=== PATIENT | male | born 1995 | race Caucasian/White ===

== ENCOUNTER 2016-04-06 12:47 | Emergency (ER) | payer OTHER ==
[2016-04-06] MEDS ORDERED: PROPARACAINE 0.5% OPHTH DROPS 15 ML BTL BOTH EYES STA (13:08)
--- NOTE | 2016-04-06 13:39 | ED ---
General Adult HPI - General Chief complaint: Eye Problems Stated complaint: FB Eye Time Seen by Provider: 04/06/16 13:07 Source: patient, RN notes reviewed Mode of arrival: ambulatory Limitations: no limitations - History of Present Illness Initial comments: Patient 20-year-old male who presents emergency room today with chief complaint of foreign body located to the left eye 2 days. He does admit that 2 days ago he did have 6 glasses on when he was grinding. States a piece of metal fell in behind got into his eye. He states he try to get it out at home with little luck. Patient states he believes his tetanus is up-to-date. Patient denies any other complaints or symptoms at this time. Patient denies any recent fever, chills, shortness of breath, chest pain, back pain, abdominal pain, nausea or vomiting, numbness or tingling, dysuria or hematuria, constipation or diarrhea, headaches, or any other complaints. - Related Data Previous Rx's Medication Instructions Recorded Acetaminophen-Codeine 300-30mg 1 each PO Q4H PRN #15 tablet 03/04/15 [Tylenol #3] Ibuprofen [Motrin] 600 mg PO Q6HR PRN #15 day 04/06/16 Tobramycin 0.3% Ophth Soln [Tobrex 1 - 2 drop LEFT EYE QID 7 Days 04/06/16 0.3% Ophth Soln] Allergies Allergy/AdvReac Type Severity Reaction Status Date / Time amoxicillin [Amoxicillin] Allergy Swelling Verified 04/06/16 12:52 Review of Systems ROS Statement: Those systems with pertinent positive or pertinent negative responses have been documented in the HPI. ROS Other: All systems not noted in ROS Statement are negative. Past Medical History Past Medical History: No Reported History History of Any Multi-Drug Resistant Organisms: None Reported Past Surgical History: No Surgical Hx Reported Past Psychological History: No Psychological Hx Reported Smoking Status: Current every day smoker Past Alcohol Use History: None Reported Past Drug Use History: None Reported General Exam - General Exam Comments Initial Comments: General: The patient is awake and alert, in no distress, and does not appear acutely ill. Eye: Pupils are equal, round and reactive to light, extra-ocular movements are intact. No nystagmus. Increased redness erythema to the left conjunctiva with watery discharge. No signs of icterus. Ears, nose, mouth and throat: There are moist mucous membranes and no oral lesions. Neck: The neck is supple. Cardiovascular: There is a regular rate and rhythm. No murmur, rub or gallop is appreciated. Respiratory: Lungs are clear to auscultation, respirations are non-labored, breath sounds are equal. No wheezes, stridor, rales, or rhonchi. Musculoskeletal: Normal ROM, no tenderness. Strength 5/5. Sensation intact. Pulses equal bilaterally 2+. Neurological: A&O x 3. CN II-XII intact, There are no obvious motor or sensory deficits. Coordination appears grossly intact. Speech is normal. Skin: Skin is warm and dry and no rashes or lesions are noted. Psychiatric: Cooperative, appropriate mood & affect, normal judgment. Limitations: no limitations Course Vital Signs 04/06/16 12:49 Temperature 98.0 F Pulse Rate 81 Respiratory 20 Rate Blood Pressure 115/69 O2 Sat by Pulse 98 Oximetry Procedures - Procedures Initial comment: Patient's left eye was anesthetized locally with proparacaine drops which did relieve his symptoms. Patient's eye was stained with forcing checked underneath Ricks lamp revealing a foreign body at the 10 o'clock position. Lids inverted no other foreign bodies. Patient's eye was then checked with slit lamp exam revealing no other foreign bodies. Craig brush was used to remove foreign body at the 10 o'clock position. Patient's eye rechecked once again underneath slit lamp. No other foreign bodies appreciated. Patient tolerated procedure well. Medical Decision Making - Medical Decision Making Patient refusing tetanus here today. Important was discussed with the patient. Patient will be started on antibiotics yesterday is advised to follow-up with chief mechanical officer over the next 2 days of symptoms have not completely resolved. Advised to use [id number] artificial tears as needed for comfort. Advised used Tylenol Motrin for pain. Advised return to emergency room for any other concerns. Disposition Clinical Impression: Corneal foreign body Disposition: HOME SELF-CARE Condition: Good Instructions: Corneal Abrasion (ED) Additional Instructions: Please follow up with the chief mechanical officer over the next 2 days of symptoms have not completely resolved. Please use [id number] artificial tears without preservatives as needed for comfort. Please use Tylenol/ibuprofen for pain as needed. Please return to emergency room for any other concerns. Prescriptions: Ibuprofen [Motrin] 600 mg PO Q6HR PRN #15 day PRN Reason: Pain Tobramycin 0.3% Ophth Soln [Tobrex 0.3% Ophth Soln] 1 - 2 drop LEFT EYE QID 7 Days Referrals: Nathan Mayorga MD [Primary Care Provider] - 1-2 days Johnathan Melchor MD [STAFF PHYSICIAN] - 1-2 days Time of Disposition: 13:38
[2016-04-06 13:56] VITALS: BP 115/70; PULSE 78; RESP 16; TEMP 97.6
== END 2016-04-06 13:55 | disposition home or self-care (01) ==
LOC: EC 12:47
DX: T15.02XA Foreign body in cornea, left eye, initial encounter (principal); W20.8XXA Other cause of strike by thrown, projected or falling object, initial encounter; Z88.0 Allergy status to penicillin; F17.200 Nicotine dependence, unspecified, uncomplicated
CPT/HCPCS: 65222; 99283

== ENCOUNTER 2017-12-14 12:33 | Emergency (ER) | payer OTHER ==
[2017-12-14 12:40] VITALS: BP 136/83; PULSE 87; RESP 18; TEMP 97.7
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
--- NOTE | 2017-12-14 13:23 | XR ---
EXAMINATION TYPE: XR wrist complete RT , 5 VIEWS DATE OF EXAM ORDERED: 12/14/2017 HISTORY: Pain. COMPARISON: None. FINDINGS: No fracture, dislocation or other acute osseous lesion is identified. IMPRESSION: NORMAL RIGHT WRIST.
--- NOTE | 2017-12-14 13:24 | XR ---
EXAMINATION TYPE: XR hand complete RT , 3 VIEWS DATE OF EXAM ORDERED: 12/14/2017 HISTORY: Pain. COMPARISON: None. FINDINGS: No fracture, dislocation or other acute osseous lesion is seen. IMPRESSION: NO ACUTE OSSEOUS LESION.
== END 2017-12-14 14:04 | disposition home or self-care (01) ==
LOC: EC 12:33
DX: S60.511A Abrasion of right hand, initial encounter (principal); F17.200 Nicotine dependence, unspecified, uncomplicated; Z88.0 Allergy status to penicillin; W22.8XXA Striking against or struck by other objects, initial encounter; Y93.89 Activity, other specified; Y92.59 Other trade areas as the place of occurrence of the external cause
CPT/HCPCS: 29125; 99283

== ENCOUNTER 2018-10-05 00:23 | Emergency (ER) | payer OTHER ==
[2018-10-05 00:30] VITALS: BP 130/75; PULSE 96; RESP 18; TEMP 97.9
[2018-10-05] MEDS ORDERED: LIDOCAINE 1% INJ 10MG/ML (20 ML MDV) SQ ONE (00:31)
[2018-10-05] MEDS ORDERED: IBUPROFEN 600 MG TAB PO STA (00:43)
--- NOTE | 2018-10-05 01:23 | XR ---
EXAM: XR Right Hand Complete, 3 or More Views CLINICAL HISTORY: Pain TECHNIQUE: Frontal, lateral and oblique views of the right hand. COMPARISON: X-ray dated 12/14/2017 FINDINGS: Bones/joints: Unremarkable. No acute fracture. No dislocation. Soft tissues: Unremarkable. No radiopaque foreign body. IMPRESSION: Normal right hand x-rays.
--- NOTE | 2018-10-05 01:30 | ED ---
Wound/Laceration HPI - General Chief Complaint: Wound/Laceration Stated Complaint: index finger rt hand Time Seen by Provider: 10/05/18 00:30 Source: patient Mode of arrival: ambulatory Limitations: no limitations - History of Present Illness Initial Comments: 22-year-old male patient presents to the emergency department today for evaluation of laceration to the right hand. Patient states just prior to arrival he was doing the dishes. States he turned with a cup in his hand, slipped in some water and fell landing on the cup. Patient denies hitting his head or losing consciousness during the fall. States his been having difficulty getting the wound to stop bleeding. Denies any use of anticoagulant or antiplatelet medications. States his tetanus vaccine is up-to-date within the last 5 years. Does admit to drinking alcohol this evening. Patient denies any headache, neck pain, back pain, chest pain, shortness of breath, dizziness, weakness, abdominal pain, nausea, vomiting, or difficulties with bowel movements or urination. - Related Data Previous Rx's Medication Instructions Recorded Acetaminophen-Codeine 300-30mg 1 each PO Q4H PRN #15 tablet 03/04/15 [Tylenol #3] Ibuprofen [Motrin] 600 mg PO Q6HR PRN #15 day 04/06/16 Tobramycin 0.3% Ophth Soln [Tobrex 1 - 2 drop LEFT EYE QID 7 Days ml 04/06/16 0.3% Ophth Soln] Cephalexin [Keflex] 500 mg PO Q6HR 5 Days cap 12/14/17 Allergies Allergy/AdvReac Type Severity Reaction Status Date / Time amoxicillin [Amoxicillin] Allergy Swelling Verified 10/05/18 00:29 Review of Systems ROS Statement: Those systems with pertinent positive or pertinent negative responses have been documented in the HPI. ROS Other: All systems not noted in ROS Statement are negative. Past Medical History Past Medical History: No Reported History History of Any Multi-Drug Resistant Organisms: None Reported Past Surgical History: No Surgical Hx Reported Past Psychological History: No Psychological Hx Reported Smoking Status: Current some day smoker Past Alcohol Use History: Occasional Past Drug Use History: Marijuana General Exam Limitations: no limitations General appearance: alert, in no apparent distress, other (Physical well- developed, well-nourished adult male patient in no acute distress. Vital signs upon presentation are temperature 97.9F, pulse 96, respirations 18, blood pressure 130/75, pulse ox 99% on room air.) Head exam: Present: atraumatic, normocephalic, normal inspection Eye exam: Present: normal appearance, PERRL, EOMI. Absent: scleral icterus, conjunctival injection, periorbital swelling ENT exam: Present: normal exam, normal oropharynx, mucous membranes moist Neck exam: Present: normal inspection, full ROM, other (Nontender, no step-off, no deformity to firm midline palpation of the posterior cervical spine. Full range of motion without pain or limitation.). Absent: tenderness, meningismus, lymphadenopathy Respiratory exam: Present: normal lung sounds bilaterally. Absent: respiratory distress, wheezes, rales, rhonchi, stridor Cardiovascular Exam: Present: regular rate, normal rhythm, normal heart sounds. Absent: systolic murmur, diastolic murmur, rubs, gallop, clicks GI/Abdominal exam: Present: soft, normal bowel sounds. Absent: distended, tenderness, guarding, rebound, rigid Extremities exam: Present: full ROM, normal capillary refill, other (4 cm laceration noted to the right index finger over the base of the proximal phalanx, palmar surface. Wound explored, no evidence of tendon injury. Mild active bleeding noted. Patient has full range of motion of the finger. Skin is otherwise pink, warm, dry. Cap refills less than 3 seconds. Radial pulses 2+ and equal bilaterally.). Absent: normal inspection, tenderness, pedal edema, joint swelling, calf tenderness Back exam: Present: normal inspection, other (Nontender, no step-off, no deformity to firm midline palpation of the thoracic and lumbar vertebrae. Full range of motion without pain or limitation.). Absent: vertebral tenderness Neurological exam: Present: alert, oriented X3, CN II-XII intact Psychiatric exam: Present: normal affect, normal mood Skin exam: Present: warm, dry, intact, normal color. Absent: rash Course Vital Signs 10/05/18 00:26 Temperature 97.9 F Pulse Rate 96 Respiratory 18 Rate Blood Pressure 130/75 O2 Sat by Pulse 99 Oximetry Procedures - Laceration Laceration #1 Consent Obtained: verbal consent Indication: laceration Site: hand (Right index finger) Size (cm): 4 Description: linear Depth: simple, single layer Anesthetic Used: lidocaine 1% Anesthesia Technique: local infiltration Amount (mls): 6 Pre-repair: wound explored, irrigated extensively Type of Sutures: nylon Size of Sutures: 5-0 Number of Sutures: 8 Technique: simple, interrupted Patient Tolerated Procedure: well, no complications Medical Decision Making - Medical Decision Making 22-year-old male patient presented to emergency department today for evaluation of laceration to right hand. Physical examination revealed a 4 cm laceration over the palmar surface of the right index finger, at the base of the proximal phalanx. Laceration was repaired as documented. X-ray showed no evidence of bony abnormality or foreign body. Wound was irrigated extensively using sterile water. Dressing applied. He'll be discharged to follow-up with hand surgeon Dr. Ochoa for further evaluation. He is educated regarding wound care, suture removal, and signs or symptoms of infection. He is instructed to follow- up with his primary care physician for recheck in 1-2 days. Return parameters were discussed in detail. He verbalizes understanding and agrees with this plan. - Radiology Data Radiology results: report reviewed, image reviewed 3 views of the right hand are obtained. Report was reviewed in its entirety. Impression by Dr. Christopher shows normal right hand x-rays. Disposition Clinical Impression: Laceration of right index finger Disposition: HOME SELF-CARE Condition: Good Instructions (If sedation given, give patient instructions): Care For Your Stitches (ED), Laceration (ED) Additional Instructions: Leave initial dressing in place for the first 24 hours. Cleanse twice daily with warm water and antibacterial soap. Take Tylenol and Motrin for pain control. Follow-up with the hand surgeon for further evaluation as soon as possible. Monitor for signs or symptoms of infection including but not limited to redness, swelling, drainage of pus, fever, or chills. Return in 7 days to have the stitches removed. Return to the emergency department immediately for any new, worsening, or concerning symptoms. Is patient prescribed a controlled substance at d/c from ED?: No Referrals: Nathan Mayorga MD [Primary Care Provider] - 1-2 days Magdi Ochoa DO [Medical Doctor] - 1-2 days Time of Disposition: 01:30
== END 2018-10-05 01:36 | disposition home or self-care (01) ==
LOC: EC 00:23
DX: S61.210A Laceration without foreign body of right index finger without damage to nail, initial encounter (principal); F17.200 Nicotine dependence, unspecified, uncomplicated; Z88.0 Allergy status to penicillin; W45.8XXA Other foreign body or object entering through skin, initial encounter; Y93.89 Activity, other specified
CPT/HCPCS: 12002; 99283

== ENCOUNTER 2020-06-09 11:33 | Emergency (ER) | payer OTHER ==
[2020-06-09 11:49] VITALS: TEMP 97.4
--- NOTE | 2020-06-09 13:01 | ED ---
Psych HPI - General Chief Complaint: Psychiatric Symptoms Stated Complaint: Mental Health Time Seen by Provider: 06/09/20 11:52 Source: patient, RN notes reviewed Mode of arrival: ambulatory Limitations: no limitations - History of Present Illness Initial Comments: 24-year-old male presents emergency Department with chief complaint of needing psychiatric help. Patient states she has some anger issues, anxiety history of bipolar disorder. Patient states used to be on medications cannot remember what they were. Patient states that he is currently on probation. 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 Patient states he was incarcerated became sober. - Related Data Home Medications Medication Instructions Recorded Confirmed No Known Home Medications 06/09/20 06/09/20 Allergies Allergy/AdvReac Type Severity Reaction Status Date / Time amoxicillin [Amoxicillin] Allergy Unknown Verified 06/09/20 12:26 Review of Systems ROS Statement: Those systems with pertinent positive or pertinent negative responses have been documented in the HPI. ROS Other: All systems not noted in ROS Statement are negative. Past Medical History Past Medical History: No Reported History History of Any Multi-Drug Resistant Organisms: None Reported Past Surgical History: No Surgical Hx Reported Past Psychological History: No Psychological Hx Reported Smoking Status: Current every day smoker Past Alcohol Use History: Occasional Past Drug Use History: Heroin, Marijuana, Methamphetamine General Exam Limitations: no limitations General appearance: alert, in no apparent distress, anxious Head exam: Present: atraumatic, normocephalic, normal inspection Eye exam: Present: normal appearance, PERRL, EOMI. Absent: scleral icterus, conjunctival injection, periorbital swelling ENT exam: Present: normal exam, normal oropharynx, mucous membranes moist Neck exam: Present: normal inspection, full ROM. Absent: tenderness, meningismus, lymphadenopathy Respiratory exam: Present: normal lung sounds bilaterally. Absent: respiratory distress, wheezes, rales, rhonchi, stridor Cardiovascular Exam: Present: regular rate, normal rhythm, normal heart sounds. Absent: systolic murmur, diastolic murmur, rubs, gallop, clicks Neurological exam: Present: alert, oriented X3, CN II-XII intact Psychiatric exam: Present: anxious Skin exam: Present: warm, dry, intact, normal color. Absent: rash Course Vital Signs 06/09/20 11:45 Temperature 97.4 F L Pulse Rate 58 L Respiratory 16 Rate Blood Pressure 131/84 O2 Sat by Pulse 100 Oximetry Medical Decision Making - Medical Decision Making 24-year-old male presented for psychiatric evaluation. Patient is not suicidal or homicidal patient evaluated by EPS psychiatrist recommends outpatient treatment for medications. Return parameters were discussed. Disposition Clinical Impression: Acute anxiety Disposition: HOME SELF-CARE Condition: Stable Instructions (If sedation given, give patient instructions): Generalized Anxiety Disorder (ED) Additional Instructions: Please return to the Emergency Department if symptoms worsen or any other concerns. Is patient prescribed a controlled substance at d/c from ED?: No Referrals: Nathan Mayorga MD [Primary Care Provider] - 1-2 days Time of Disposition: 14:11
[2020-06-09 14:26] VITALS: BP 124/85; PULSE 88; RESP 18
== END 2020-06-09 14:27 | disposition home or self-care (01) ==
LOC: EC 11:33
DX: F41.9 Anxiety disorder, unspecified (principal); F17.210 Nicotine dependence, cigarettes, uncomplicated
CPT/HCPCS: 82075; 99282

== ENCOUNTER 2021-11-07 17:41 | Inpatient (IN) | payer MEDICAID, OTHER ==
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
[2021-11-07 20:19] LABS: Amphetamine Screen,Urine Detected (NotDetected); Barbiturate Screen,Urine Not Detected (NotDetected); Benzodiazepines Screen,Urine Not Detected (NotDetected); Cocaine Screen,Urine Not Detected (NotDetected); Methadone Screen, Urine Not Detected (NotDetected); Opiate Screen,Urine Not Detected (NotDetected); Oxycodone Screen, Urine Not Detected (NotDetected); Phencyclidine Screen,Urine Not Detected (NotDetected); Tricyclic Antidepressant,Urine Not Detected (NotDetected); Urn Cannabinoid Scrn Detected (NotDetected)
[2021-11-07] MEDS ORDERED: ALBUTEROL HFA INHALER INHALATION STA (20:19)
[2021-11-08] MEDS ORDERED: MAG HYDROX/AL HYDROX/SIMETH 30 ML CUP PO PRN (01:11)
[2021-11-08] MEDS ORDERED: ACETAMINOPHEN TAB 325 MG TAB PO PRN (01:11)
[2021-11-08] MEDS ORDERED: MAGNESIUM HYDROXIDE 2,400 MG/10 ML CUP PO PRN (01:11)
[2021-11-08] MEDS ORDERED: LORazepam 2 MG/ML INJ IM PRN (01:13)
[2021-11-08] MEDS ORDERED: LORazepam 1 MG TAB PO PRN (01:13)
[2021-11-08] MEDS ORDERED: HALOPERIDOL LACTATE 5 MG/ML 1 ML VIAL IM PRN (01:14)
[2021-11-08] MEDS: traZODone HCL 100 MG TAB PO PRN (01:50)
[2021-11-08 02:59] VITALS: TEMP 97.1
[2021-11-08] MEDS ORDERED: hydrOXYzine HCL 50 MG/ML 1 ML VIAL IM PRN (09:49)
[2021-11-08] MEDS ORDERED: hydrOXYzine pamoate 25 MG CAP PO PRN (09:49)
[2021-11-08] MEDS: NICOTINE 14MG/24HR PATCH TRANSDERM SCH (10:05)
[2021-11-08] MEDS ORDERED: lamoTRIgine 25 MG TAB PO STA (11:18)
[2021-11-08] MEDS: haloperidoL 5 MG TAB PO PRN (12:37)
[2021-11-08] MEDS ORDERED: LORazepam 2 MG/ML INJ IM STA (13:02)
[2021-11-08] MEDS ORDERED: HALOPERIDOL LACTATE 5 MG/ML 1 ML VIAL IM ONE (13:15)
[2021-11-08] MEDS ORDERED: chlorproMAZINE 25 MG/ML 1 ML AMP IM ONE ×2 (13:49→14:00)
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
[2021-11-08] MEDS ORDERED: chlorproMAZINE 25 MG/ML 1 ML AMP IM PRN (14:03)
[2021-11-08 14:22] VITALS: RESP 16
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
[2021-11-09] MEDS: QUEtiapine 100 MG TAB PO SCH (00:29)
--- NOTE | 2021-11-09 04:27 | P.PN ---
Progress Note - Text Progress Note Date: 11/08/21 Attempted to see the patient on the mental health unit on 11/08 at 1999. Informed by the mental health unit RN that the patient is actively psychotic and inappropriate for evaluation at this time.
[2021-11-09] MEDS: LORazepam 1 MG TAB PO PRN (04:28)
[2021-11-09] MEDS ORDERED: diphenhydrAMINE 50 MG/ML 1 ML VIAL ONE (11:32)
[2021-11-09] MEDS: diphenhydrAMINE 50 MG/ML 1 ML VIAL IM PRN (11:52)
[2021-11-09] MEDS: NICOTINE 14MG/24HR PATCH TRANSDERM SCH (11:53)
[2021-11-09] MEDS: lamoTRIgine 25 MG TAB PO SCH (11:53)
--- NOTE | 2021-11-09 12:07 | P.PN ---
Progress Note - Text Progress Note Date: 11/09/21 Interval History: Patient was seen wandering the hallways and was directable and agreeable to speak with the instructional writer in his room. The patient continues to be very agitated. He is demanding discharge. He states that if he does not see his son by Saturday, he will destroy everything in here and will cause a lot of problems on the psychiatric unit. Furthermore, the patient begins threatening staff stating that he will kill us. The patient also states that if he is unable to leave here, he will find a piece of glass in order to cut himself and kill himself. When informed that he would not be discharged, the patient begins punching the lights in his room and a MrAlexis sky has been called. The patient was administered IM medications due to his agitation. He did however sign a 72 hour notice for discharge but was informed that he would need to exhibit appropriate behavior as if we were to continue with the plan for discharge on Saturday. The patient continues to be very oppositional, confrontational, and rigid. Mental Status Exam: General Appearance: Patient appears to be stated age is alert, however not directable, and not cooperative. Behavior: Patient displays posturing and agitated behavior. Speech: Patient's speech is repetitive, hyperverbal, loud Mood/Affect: Mood is "I can't, I can't, I can't." Affect is labile, between angry and tearful. Patient is very agitated. Suicidality/Homicidality: Patient endorses both suicidal and homicidal ideation. Perceptions: Unable to assess due to patient's presentation Though content/process: Rigid, projecting, oppositional. Flight of ideas Memory and concentration: Grossly intact Judgment and insight: Very poor Vital Signs Temp 97.1 F L 11/08/21 02:56 Pulse 81 11/08/21 14:00 Resp 16 11/08/21 14:00 BP 131/68 11/08/21 14:00 Pulse Ox 98 11/07/21 17:56 FiO2 Assessment Antisocial personality disorder - patient does exhibit oppositional behaviors and has a history of multiple legal issues including incarcerations. Bipolar 2 disorder, mixed episode Polysubstance abuse - alcohol, cocaine, methamphetamines, heroin, fentanyl Plan: -Patient is admitted under voluntary status to MHU for stabilization of psychiatric symptoms and safety. Patient signed adult voluntary form and medication consent and is placed in patient's chart. Patient signed a 72 hour notice for discharge. As a 72 hours include Saturday, the patient sent to our notice would be up on Saturday at 11:40 AM. -Medications : Seroquel 100 mg by mouth at bedtime for mood stabilization Lamictal 25 mg by mouth daily for mood stabilization -Due to the patient's aggressive behaviors, continue Thorazine 100 mg Q6H PRN, Ativan 2 mg Q6H PRN, and Benadryl 50 mg Q6H PRN for agitation/aggression -Strongly encourage patient to exhibit appropriate behaviors and to exercise appropriate coping skills.
[2021-11-09] MEDS: NALTREXONE HCL 50 MG TAB PO SCH (13:05)
[2021-11-10] MEDS: QUEtiapine 100 MG TAB PO SCH ×2 (05:09→22:49)
[2021-11-10] MEDS: lamoTRIgine 25 MG TAB PO SCH (09:30)
[2021-11-10] MEDS: NALTREXONE HCL 50 MG TAB PO SCH (09:30)
[2021-11-10] MEDS: LORazepam 1 MG TAB PO PRN (09:32)
[2021-11-10] MEDS: NICOTINE 14MG/24HR PATCH TRANSDERM SCH (09:39)
[2021-11-10 12:17] LABS: ALT 23 U/L (4-49); AST 54 U/L (17-59); African American GFR (CKD) >90 (>60 ml/min/1.73 sqM); Albumin 4.3 g/dL (3.5-5.0); Alkaline Phosphatase 77 U/L (38-126); Anion Gap 10 mmol/L; Blood Urea Nitrogen 14 mg/dL (9-20); Calcium 9.2 mg/dL (8.4-10.2); Carbon Dioxide 26 mmol/L (22-30); Chloride 101 mmol/L (98-107); Glucose 157 mg/dL (74-99); Non-African American GFR(CKD) >90 (>60 ml/min/1.73 sqM); Potassium 4.5 mmol/L (3.5-5.1); Sodium 137 mmol/L (137-145); Total Bilirubin 0.6 mg/dL (0.2-1.3); Total Protein 6.7 g/dL (6.3-8.2)
[2021-11-10 12:20] LABS: Basophils % (A) 0 %; Eosinophils # (A) 0.1 k/uL (0-0.7); Eosinophils % (A) 1 %; HCT 43.2 % (39.0-53.0); HGB 14.2 gm/dL (13.0-17.5); Lymphocytes # (A) 1.4 k/uL (1.0-4.8); Lymphocytes % (A) 16 %; MCH 30.7 pg (25.0-35.0); MCHC 32.9 g/dL (31.0-37.0); MCV 93.2 fL (80.0-100.0); Mean Platelet Volume 8.6; Monocytes # (A) 0.6 k/uL (0-1.0); Monocytes % (A) 7 %; Neutrophils # (A) 6.2 k/uL (1.3-7.7); Neutrophils % (A) 72 %; Platelet Count 198 k/uL (150-450); RBC 4.63 m/uL (4.30-5.90); RDW 12.9 % (11.5-15.5); WBC 8.7 k/uL (3.8-10.6)
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
[2021-11-10] MEDS: LORazepam 2 MG/ML INJ IM PRN (13:32)
[2021-11-10] MEDS: haloperidoL 5 MG TAB PO PRN (13:34)
[2021-11-10] MEDS: chlorproMAZINE 100 MG TAB PO PRN (17:28)
[2021-11-11] MEDS: lamoTRIgine 25 MG TAB PO SCH (08:31)
[2021-11-11] MEDS: NALTREXONE HCL 50 MG TAB PO SCH (08:32)
[2021-11-11] MEDS: chlorproMAZINE 100 MG TAB PO PRN ×2 (08:34→18:17)
[2021-11-11] MEDS: LORazepam 1 MG TAB PO PRN ×2 (08:34→18:16)
[2021-11-11] MEDS: NICOTINE 14MG/24HR PATCH TRANSDERM SCH (08:41)
[2021-11-11] MEDS: diphenhydrAMINE 50 MG/ML 1 ML VIAL IM PRN (13:42)
[2021-11-11] MEDS: haloperidoL 5 MG TAB PO PRN (13:47)
--- NOTE | 2021-11-11 19:50 | P.PN ---
Progress Note - Text Progress Note Date: 11/11/21 Interval History: Patient was seen resting in bed today and was agreeable to speak with leader writer. He had been agitated earlier today and received Haldol 5 mg po x1 this afternoon followed by Thorazine 100 mg po x 1 and Ativan 2 mg po x 1 earlier this evening for agitation. Staff report he has been arguing with his girlfriend on the phone and getting agitated as a result. He is currently denying any suicidal or homicidal ideation, intention, and/or plan. He denies auditory or visual hallucinations. No paranoid delusional expressed. He inquires about discharge for tomorrow and he was referred to speak with his primary team on Saturday. He is compliant with medications and denies medication side effects. He attended one group today and refused the rest of the groups. He reports poor sleep and wants to take his Trazodone tonight. Mental Status Exam: General Appearance: Patient appears to be stated age, fair hygiene and grooming. Behavior: Resting in bed after getting PRN medications. Does not become agitated on assessment but was upset earlier after arguing with girlfriend. Speech: Patient's speech is spontaneous, and with normal tone and volume, non- pressured. Mood/Affect: Mood is "ok" Affect is congruent, constricted. Suicidality/Homicidality: Patient is denying any suicidal or homicidal ideation. Perceptions: He denies auditory or visual hallucinations. Though content/process: No paranoid delusions expressed. Linear, goal-directed. Memory and concentration: Grossly intact Judgment and insight: Poor Assessment Antisocial personality disorder - patient does exhibit oppositional behaviors and has a history of multiple legal issues including incarcerations. Bipolar 2 disorder, mixed episode Polysubstance abuse - alcohol, cocaine, methamphetamines, heroin, fentanyl Plan: -Patient is admitted under voluntary status to MHU for stabilization of psychia tric symptoms and safety. He continues to meet criteria for inpatient hospitalization. -Medications: Continue Seroquel 100 mg by mouth at bedtime for mood stabilization and Lamictal 50 mg by mouth daily for mood stabilization. Continue Trazodone 100 mg QHS PRN for sleep, and Naltrexone 50 mg daily for opioid use disorder. -Due to the patient's aggressive behaviors, continue Thorazine 100 mg Q6H PRN, Ativan 2 mg Q6H PRN, and Benadryl 50 mg Q6H PRN for agitation/aggression -Encouraged group attendance.
[2021-11-11] MEDS: traZODone HCL 100 MG TAB PO PRN (20:48)
[2021-11-11] MEDS: QUEtiapine 100 MG TAB PO SCH (20:48)
[2021-11-12] MEDS: NICOTINE 14MG/24HR PATCH TRANSDERM SCH (08:33)
[2021-11-12] MEDS: lamoTRIgine 25 MG TAB PO SCH (08:34)
[2021-11-12] MEDS: NALTREXONE HCL 50 MG TAB PO SCH (08:34)
[2021-11-12] MEDS: LORazepam 2 MG/ML INJ IM PRN ×2 (08:37→15:14)
[2021-11-12] MEDS: haloperidoL 5 MG TAB PO PRN (09:23)
[2021-11-12] MEDS: chlorproMAZINE 100 MG TAB PO PRN ×2 (09:23→15:13)
[2021-11-12 09:28] VITALS: BP 120/71; PULSE 99
[2021-11-12] MEDS: diphenhydrAMINE 50 MG/ML 1 ML VIAL IM PRN (11:22)
[2021-11-12] MEDS ORDERED: traZODone HCL 100 MG TAB PO PRN (19:31)
[2021-11-12] MEDS: NICOTINE GUM (POLACRILEX) 2 MG GUM BUCCAL PRN (19:51)
--- NOTE | 2021-11-12 19:57 | P.PN ---
Progress Note - Text Progress Note Date: 11/12/21 Interval History: Patient was seen pacing the hallway today and was agreeable to speak with insurance writer. He appears anxious and admits he is very worried about the results of his HIV test. I looked for the results which are still pending. He states he is "99.9% sure" he has HIV and is very worried about it. Earlier today he received Haldol 5 mg po x1, Thorazine 100 mg po x 1, Ativan 2 mg po x 1 and Benadryl 50 mg po x1 for agitation/anxiety. He states he is on edge due to being on the unit and think he may feel better at home. He continues to be discharge focused and wants to go home tomorrow. He is currently denying any suicidal or homicidal ideation, intention, and/or plan. He denies auditory or visual hallucinations. No paranoid delusional thoughts expressed. He reports difficulty falling asleep and asks for the Trazodone to be increased. He also thinks he would benefit from Thorazine during the day but also works as a control analyst and doesn't want to take anything that would make him sedated. He plans to follow-up with his outpatient psychiatrist after discharge. He is compliant with medications and denies medication side effects. Mental Status Exam: General Appearance: Patient appears to be stated age, fair hygiene and grooming. Behavior: Pacing the hallways, appears anxious. Speech: Patient's speech is spontaneous, and with normal tone and volume, non- pressured. Mood/Affect: Mood is anxious. Affect is congruent, constricted. Suicidality/Homicidality: Patient is denying any suicidal or homicidal ideation. Perceptions: He denies auditory or visual hallucinations. Though content/process: No paranoid delusions expressed. Linear, goal-directed. Memory and concentration: Grossly intact Judgment and insight: Improving mildly Assessment Antisocial personality disorder - patient does exhibit oppositional behaviors and has a history of multiple legal issues including incarcerations. Bipolar 2 disorder, mixed episode Polysubstance abuse - alcohol, cocaine, methamphetamines, heroin, fentanyl Plan: -Patient is admitted under voluntary status to [facility] for stabilization of psychiatric symptoms and safety. He continues to meet criteria for inpatient hospitalization. -Medications: Continue Seroquel 100 mg by mouth at bedtime for mood stabilization and Lamictal 50 mg by mouth daily for mood stabilization. Increase Trazodone to 150 mg QHS PRN for sleep. Continue Naltrexone 50 mg daily for opioid use disorder. -Due to the patient's aggressive behaviors, continue Thorazine 100 mg Q6H PRN, Ativan 2 mg Q6H PRN, and Benadryl 50 mg Q6H PRN for agitation/aggression -Encouraged group attendance.
[2021-11-12] MEDS: QUEtiapine 100 MG TAB PO SCH (20:13)
[2021-11-13] MEDS: NICOTINE GUM (POLACRILEX) 2 MG GUM BUCCAL PRN ×2 (08:19→10:27)
[2021-11-13] MEDS: LORazepam 1 MG TAB PO PRN (08:19)
[2021-11-13] MEDS: lamoTRIgine 25 MG TAB PO SCH (08:19)
[2021-11-13] MEDS: NALTREXONE HCL 50 MG TAB PO SCH (08:19)
[2021-11-13] MEDS: haloperidoL 5 MG TAB PO PRN (10:27)
[2021-11-13 11:44] LABS: HIV-1 RNA Not detected (Not detected)
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
== END 2021-11-13 12:00 | disposition home or self-care (01) | DRG 885 ==
LOC: EC 17:41 → 3MHU 11-08 01:06
PROVIDERS: ADMIT Psychiatry & Neurology Psychiatry; ATTEND Psychiatry & Neurology Psychiatry
DX: F31.81 Bipolar II disorder (principal); F11.20 Opioid dependence, uncomplicated; R45.851 Suicidal ideations; F14.10 Cocaine abuse, uncomplicated; F17.210 Nicotine dependence, cigarettes, uncomplicated; R45.850 Homicidal ideations; Z20.822 Contact with and (suspected) exposure to COVID-19; F41.9 Anxiety disorder, unspecified; F60.2 Antisocial personality disorder; F15.10 Other stimulant abuse, uncomplicated; F10.20 Alcohol dependence, uncomplicated; F90.9 Attention-deficit hyperactivity disorder, unspecified type; G47.00 Insomnia, unspecified; Z65.3 Problems related to other legal circumstances; Z56.0 Unemployment, unspecified; Z78.1 Physical restraint status; Z79.899 Other long term (current) drug therapy; Z81.8 Family history of other mental and behavioral disorders; Z88.1 Allergy status to other antibiotic agents; Z71.6 Tobacco abuse counseling; Z71.51 Drug abuse counseling and surveillance of drug abuser
CPT/HCPCS: 80053; 80306; 82075; 84443; 85025; 87340; 87521; 87535; 87635; 94640; 96372; 99285

== ENCOUNTER 2023-02-04 06:43 | Emergency (ER) | payer OTHER ==
[2023-02-04 06:59] VITALS: BP 119/81; PULSE 77; RESP 18; TEMP 98.1
--- NOTE | 2023-02-04 08:38 | ED ---
General Adult HPI - General Chief complaint: Upper Respiratory Infection Stated complaint: SOB, Sore Throat Time Seen by Provider: 02/04/23 06:57 Source: patient, RN notes reviewed Mode of arrival: ambulatory Limitations: no limitations - History of Present Illness Initial comments: 27-year-old male with past medical history significant for po lysubstance abuse presents the emergency department with a chief complaint of sore throat. Patient reports that he has had a sore throat, generalized body aches and cough for the last 2 weeks. It has not gotten better. He has not been taking anything for his symptoms [id number]. He denies any chest pain or palpitations, high fever, nausea or vomiting. - Related Data Previous Rx's Medication Instructions Recorded Naltrexone HCl [Revia] 50 mg PO DAILY 30 Days tab 11/13/21 Nicotine Gum (Polacrilex) 2 mg BUCCAL Q2HR PRN 30 Days 11/13/21 [Nicorette] pieceofgum QUEtiapine [SEROquel] 100 mg PO HS 30 Days tab 11/13/21 lamoTRIgine [LaMICtal] 50 mg PO DAILY 30 Days tab 11/13/21 traZODone HCL [Desyrel] 150 mg PO HS PRN 30 Days tab 11/13/21 Benzonatate [Tessalon Perles] 100 mg PO TID PRN #15 capsule 02/04/23 Ibuprofen [Motrin] 600 mg PO Q8HR PRN #30 tab 02/04/23 Allergies Allergy/AdvReac Type Severity Reaction Status Date / Time amoxicillin [Amoxicillin] Allergy Unknown Verified 11/07/21 18:00 Review of Systems ROS Statement: Those systems with pertinent positive or pertinent negative responses have been documented in the HPI. ROS Other: All systems not noted in ROS Statement are negative. Past Medical History Past Medical History: No Reported History History of Any Multi-Drug Resistant Organisms: None Reported Past Surgical History: No Surgical Hx Reported Past Psychological History: ADD/ADHD, Anxiety, Bipolar, Depression Smoking Status: Current every day smoker Past Alcohol Use History: Abuse Past Drug Use History: Heroin, Marijuana, Methamphetamine, Opiates General Exam - General Exam Comments Initial Comments: General: Alert, in no acute distress Head: atraumatic normocephalic. Eyes PERRL, EOMI intact, mucous membranes moist Respiratory: Lungs clear to auscultation bilaterally Cardiovascular: Heart rate regular rate and rhythm Abdominal: Soft without guarding or rebound Extremities: Normal inspection with full range of motion and normal capillary refill Neuroogic: alert and oriented 3, CN II-XII intact, able to ambulate with steady gait Skin: warm dry and intact with normal color Limitations: no limitations Course Vital Signs 02/04/23 06:50 Temperature 98.1 F Pulse Rate 77 Respiratory 18 Rate Blood Pressure 119/81 O2 Sat by Pulse 98 Oximetry - Reevaluation(s) Reevaluation #1: 02/04/23 08:40 Should reevaluated updated on results. Agreeable with the plan for discharge home. Medical Decision Making - Medical Decision Making Was pt. sent in by a medical professional or institution (, PA, DUPLICATE MAKER, urgent care, hospital, or snf...) When possible be specific @ -[No] Did you speak to anyone other than the patient for history (EMS, parent, family, police, friend...)? What history was obtained from this source @ -[No] Did you review nursing and triage notes (agree or disagree)? Why? @ -[I reviewed and agree with nursing and triage notes] Were old charts reviewed (outside hosp., previous admission, EMS record, old EKG, old radiological studies, urgent care reports/EKG's, snf records)? Report findings @ -[No old charts were reviewed] Differential Diagnosis (chest pain, altered mental status, abdominal pain women, abdominal pain men, vaginal bleeding, weakness, fever, dyspnea, syncope, headache, dizziness, GI bleed, back pain, seizure, CVA, palpatations, mental health, musculoskeletal)? @ -[not applicable] EKG interpreted by me (3pts min.). @ -[As above] X-rays interpreted by me (1pt min.). @ -[None done] CT interpreted by me (1pt min.). @ -[None done] U/S interpreted by me (1pt. min.). @ -[None done] What testing was considered but not performed or refused? (CT, X-rays, U/S, labs)? Why? @ -[None] What meds were considered but not given or refused? Why? @ -[None] Did you discuss the management of the patient with other professionals (professionals i.e. , PA, DUPLICATE MAKER, lab, RT, psych nurse, social problems specialist, psychiatric specialist, teacher, navigating officer, immigration case manager)? Give summary @ -[No] Was smoking cessation discussed for >3mins.? @ -[No] Was critical care preformed (if so, how long)? @ -[No] Were there social determinants of health that impacted care today? How? (Homelessness, low income, unemployed, alcoholism, drug addiction, transportatio n, low edu. Level, literacy, decrease access to med. care, long term, rehab)? @ -[No] Was there de-escalation of care discussed even if they declined (Discuss DNR or withdrawal of care, Hospice)? DNR status @ -[No] What co-morbidities impacted this encounter? (DM, HTN, Smoking, COPD, CAD, Cancer, CVA, ARF, Chemo, Hep., AIDS, mental health diagnosis, sleep apnea, morbid obesity)? @ -[None] Was patient admitted / discharged? Hospital course, mention meds given and route, prescriptions, significant lab abnormalities, going to OR and other pertinent info. @ Discharged. This is a 27-year-old male presents the emergency department with sore throat. Patient had a thorough history and physical exam performed. Throat without tonsillomegaly or tonsillar exudate. Patient had vital signs which were negative. Patient was provided prescription for Motrin and Tessalon Perles. Discharged in stable condition. Case discussed with Dr. garay, ED attending who agrees with plan of care Undiagnosed new problem with uncertain prognosis? @ -[No] Drug Therapy requiring intensive monitoring for toxicity (Heparin, Nitro, Insulin, Cardizem)? @ -[No] Were any procedures done? @ -[No] Diagnosis/symptom? @ -Sore throat Acute, or Chronic, or Acute on Chronic? @ -Acute Uncomplicated (without systemic symptoms) or Complicated (systemic symptoms)? @ -Uncomplicated Side effects of treatment? @ -[No] Exacerbation, Progression, or Severe Exacerbation? @ -[No] Poses a threat to life or bodily function? How? (Chest pain, USA, MA, pneumonia, PE, COPD, DKA, ARF, appy, cholecystitis, CVA, Diverticulitis, Homicidal, Suicidal, threat to staff... and all critical care pts) @ -Low likelihood - Lab Data Lab Results 02/04/23 02/04/23 Range/Units 07:29 07:29 Influenza Type A (PCR) Not Detected (Not Detectd) Influenza Type B (PCR) Not Detected (Not Detectd) RSV (PCR) Not Detected (Not Detectd) SARS-CoV-2 (PCR) Not Detected (Not Detectd) Group A Strep (PCR) NOT DETECTED (Not Detectd) Disposition Clinical Impression: Cough, Sore throat Disposition: HOME SELF-CARE Condition: Stable Instructions (If sedation given, give patient instructions): Upper Respiratory Infection (ED) Prescriptions: Ibuprofen [Motrin] 600 mg PO Q8HR PRN #30 tab PRN Reason: Pain Benzonatate [Tessalon Perles] 100 mg PO TID PRN #15 capsule PRN Reason: Cough Is patient prescribed a controlled substance at d/c from ED?: No Referrals: Nathan Mayorga MD [Primary Care Provider] - 1-2 days Time of Disposition: 08:38
== END 2023-02-04 09:01 | disposition home or self-care (01) ==
LOC: EC 06:43
DX: J02.9 Acute pharyngitis, unspecified (principal); F17.200 Nicotine dependence, unspecified, uncomplicated; F12.90 Cannabis use, unspecified, uncomplicated; Z88.0 Allergy status to penicillin; Z86.59 Personal history of other mental and behavioral disorders; Z20.822 Contact with and (suspected) exposure to COVID-19
CPT/HCPCS: 87636; 87651; 99284

== ENCOUNTER 2023-05-20 23:43 | Emergency (ER) | payer OTHER ==
[2023-05-21] MEDS: LIDOCAINE 4% PATCH TOPICAL ONE (00:09)
[2023-05-21] MEDS: DEXAMETHASONE SOD PHOSPHATE 10 MG/ML 1 ML VIAL IM STA (00:12)
[2023-05-21] MEDS: ORPHENADRINE 30 MG/ML 2 ML VIAL IM STA (00:12)
[2023-05-21] MEDS: KETOROLAC 15 MG/ML 1 ML VIAL IM STA (00:12)
[2023-05-21 00:35] VITALS: TEMP 98
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
--- NOTE | 2023-05-21 01:20 | XR ---
EXAM: XR Lumbosacral Spine, 2 or 3 Views CLINICAL HISTORY: ITS.REASON XR Reason: back pain TECHNIQUE: Frontal and lateral views of the lumbar spine and sacrum. COMPARISON: No relevant prior studies available. FINDINGS: Vertebrae: No acute fracture. Minimal dextroscoliosis. Minimal retrolisthesis L5 on S1. Disc spaces: No significant narrowing. Soft tissues: Unremarkable. IMPRESSION: No acute findings. Minimal dextroscoliosis. Minimal retrolisthesis L5 on S1.
[2023-05-21 02:03] VITALS: BP 104/53; PULSE 58; RESP 16
== END 2023-05-21 01:38 | disposition home or self-care (01) ==
LOC: EC 23:43
DX: M43.17 Spondylolisthesis, lumbosacral region (principal); F17.290 Nicotine dependence, other tobacco product, uncomplicated
CPT/HCPCS: 72100; 99283; 96372 ×3; J1100; J2360; J1885

== ENCOUNTER 2023-11-06 07:16 | Emergency (ER) | payer BC ==
[2023-11-06 07:25] VITALS: RESP 18
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
[2023-11-06] MEDS: KETOROLAC 15 MG/ML 1 ML VIAL IM STA (08:24)
[2023-11-06 08:55] VITALS: BP 120/76; PULSE 64; TEMP 98
== END 2023-11-06 08:55 | disposition home or self-care (01) ==
LOC: EC 07:16
CPT/HCPCS: 96372; 99283

== ENCOUNTER 2023-12-14 16:45 | Emergency (ER) | payer BC ==
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
[2023-12-14 17:16] VITALS: TEMP 98.5
--- NOTE | 2023-12-14 17:24 | XR ---
EXAMINATION TYPE: XR chest 2V DATE OF EXAM: 12/14/2023 5:18 PM COMPARISON: Chest radiographs from 02/26/2012. CLINICAL INDICATION: Male, 28 years old with history of chest pain; [facility] TECHNIQUE: XR chest 2V Frontal and lateral views of the chest. FINDINGS: Lungs/Pleura: There is no evidence of pleural effusion, focal consolidation, or pneumothorax. Pulmonary vascularity: Unremarkable. Heart/mediastinum: Cardiomediastinal silhouette is unremarkable. Musculoskeletal: No acute osseous pathology. IMPRESSION: No acute cardiopulmonary disease/process. [facility], , 12/14/2023 5:21 PM
[2023-12-14] MEDS: ALBUTEROL NEBULIZED 2.5 MG/3 ML INHALATION STA (17:46)
[2023-12-14] MEDS: predniSONE 20 MG TAB PO STA (18:58)
[2023-12-14 19:02] VITALS: BP 142/99; PULSE 85; RESP 20
== END 2023-12-14 19:03 | disposition home or self-care (01) ==
LOC: EC 16:45
DX: J20.9 Acute bronchitis, unspecified (principal); F17.200 Nicotine dependence, unspecified, uncomplicated
CPT/HCPCS: 94640; 93005; 87636; 71046; 99285; J7512

== ENCOUNTER 2023-12-24 08:22 | Emergency (ER) | payer BC ==
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
[2023-12-24 08:50] VITALS: BP 134/99; PULSE 88; TEMP 98.2
[2023-12-24 09:09] VITALS: RESP 18
--- NOTE | 2023-12-24 09:34 | XR ---
EXAMINATION TYPE: XR chest 2V DATE OF EXAM: 12/24/2023 9:13 AM COMPARISON: 12/14/2023 CLINICAL INDICATION: Male, 28 years old with history of cough, TECHNIQUE: XR chest 2V view(s) obtained. FINDINGS: The heart size is normal. The pulmonary vasculature is normal. The lungs are clear. IMPRESSION: 1. No acute pulmonary process. [facility], , 12/24/2023 9:32 AM
== END 2023-12-24 10:15 | disposition home or self-care (01) ==
LOC: EC 08:22
DX: R05.9 Cough, unspecified (principal); F17.210 Nicotine dependence, cigarettes, uncomplicated
CPT/HCPCS: 71046; 87636; 99285; 99406